=== PATIENT | female | born 1960 | race African-American/Black ===

== ENCOUNTER 2017-10-07 19:35 | Emergency (ER) | payer MEDICARE, OTHER ==
[~2017-10-07] VITALS: Ht 165.1 cm; Wt 90.9 kg
[~2017-10-07 19:35] MED LIST: METF1000 PO; htn med
[2017-10-07] MEDS ORDERED: METF500T6 PO (19:49)
[2017-10-07] MEDS ORDERED: LISI-622 PO (19:49)
[2017-10-07] MEDS ORDERED: HYDR-309 PO (19:49)
[2017-10-07 19:53] LABS: GLUCOSE,POINT OF CARE 486 MG/DL (70-110)
[2017-10-07 20:02] VITALS: BP 144/80
== END 2017-10-07 20:27 | disposition home or self-care (01) ==
LOC: EMS 19:36
DX: F32.9 Major depressive disorder, single episode, unspecified (principal); Z53.21 Procedure and treatment not carried out due to patient leaving prior to being seen by health care provider

== ENCOUNTER 2017-10-17 19:12 | Emergency (ER) | payer MEDICARE, OTHER ==
[~2017-10-17] VITALS: Ht 167.6 cm; Wt 54.5 kg
[~2017-10-17 19:12] MED LIST changes: +HYDR-309 PO; +LISI-622 PO; -METF1000 PO; +METF500T6 PO; -htn med
[2017-10-17] MEDS ORDERED: MetFORMIN HCL 500 MG TABLET PO ONE (19:30)
[2017-10-17] MEDS ORDERED: SODIUM CHLORIDE 0.9% 1,000 ML IV ONE ×2 (19:30→20:15)
[2017-10-17] MEDS ORDERED: HALO5TAB2 PO (19:33)
[2017-10-17 19:45] LABS: BASOPHILS % (AUTO) 0.9 % (0.0-2.0); EOSINOPHILS % (AUTO) 2.8 % (1.0-6.0); HEMATOCRIT 30.9 % (36-46); HEMOGLOBIN 10.6 g/dL (12.0-16.0); LYMPHOCYTES # (AUTO) 1.4 K/uL (1.0-4.8); LYMPHOCYTES % (AUTO) 19.9 % (22.0-44.0); MEAN CORPUSCULAR HEMOGLOBIN 31.6 pg (26.0-34.0); MEAN CORPUSCULAR HGB CONC 34.2 G/dL (31.0-37.0); MEAN CORPUSCULAR VOLUME 92 fL (80-100); MONOCYTES # (AUTO) 0.4 K/uL (0.1-1.0); MONOCYTES % (AUTO) 6.2 % (2.0-9.0); NEUTROPHILS % (AUTO) 70.2 % (40.0-70.0); PLATELET COUNT (AUTO) 291 K/uL (150-450); RED BLOOD CELL COUNT(AUTO) 3.35 MIL/uL (4.00-5.20); RED CELL DISTRIBUTION WIDTH 14.4 % (11.5-14.5)
[2017-10-17 20:08] LABS: GLUCOSE,POINT OF CARE 391 MG/DL (70-110)
[2017-10-17 20:15] LABS: ANION GAP 5 mmol/L (8-16); CALCIUM, TOTAL 8.2 mg/dL (8.8-10.5); CARBON DIOXIDE 29 mmol/L (22-29); CHLORIDE 104 mmol/L (98-107); CREATININE 1.05 mg/dL (0.60-1.30); GLOMERULAR FILTR. RATE CALC > 60 mL/min (>60); GLUCOSE,RANDOM 395 mg/dL (70-110); POTASSIUM 4.3 mmol/L (3.5-5.1); SODIUM SERUM 138 mmol/L (136-145); UREA NITROGEN, BLOOD 17 mg/dL (7-18)
[2017-10-17] MEDS ORDERED: INSULIN REGULAR, HUMAN 100 UNITS/ML IVP ONE (20:15)
[2017-10-17 20:22] LABS: ALANINE AMINOTRANSFERASE 26 U/L (12-78); ALBUMIN 3.1 g/dL (3.4-5.0); ALKALINE PHOSPHATASE 64 U/L (46-116); ASPARTATE AMINOTRANSFERASE 25 U/L (15-37); BILIRUBIN,TOTAL 0.2 mg/dL (0.1-1.0); TOTAL PROTEIN, SERUM 6.2 g/dL (6.4-8.2)
[2017-10-17 21:08] LABS: GLUCOSE,POINT OF CARE 137 MG/DL (70-110)
[2017-10-17 21:09] VITALS: BP 125/71
== END 2017-10-17 21:24 | disposition home or self-care (01) ==
LOC: EMS 19:15
DX: E11.65 Type 2 diabetes mellitus with hyperglycemia (principal); F20.9 Schizophrenia, unspecified; F31.9 Bipolar disorder, unspecified; I10 Essential (primary) hypertension; F17.210 Nicotine dependence, cigarettes, uncomplicated; Z59.0 Homelessness; Z79.899 Other long term (current) drug therapy
CPT/HCPCS: 36415; 80053; 82962; 85025; 96361; 96374; 99284; 99406; J1815; J7030

== ENCOUNTER 2017-12-08 15:33 | Inpatient (IN) | payer BC, MEDICAID ==
[~2017-12-08] VITALS: Ht 165.1 cm; Wt 66.0 kg
[~2017-12-08 15:33] MED LIST changes: +HALO5TAB2 PO; +METF-960 PO; -METF500T6 PO
[2017-12-08] MEDS ORDERED: DiphenhydrAMINE HCL 50 MG/ML VIAL IM ONE (16:00)
[2017-12-08] MEDS ORDERED: HALOPERIDOL LACTATE 5 MG/ML VIAL IM ONE (16:00)
[2017-12-08] MEDS ORDERED: LORazepam 2 MG/ML VIAL IM ONE (16:00)
[2017-12-08] MEDS ORDERED: ZOLPIDEM TARTRATE 10 MG TABLET PO PRN (16:15)
[2017-12-08] MEDS ORDERED: OLANZapine 5 MG RAPDIS TABLET PO PRN (16:15)
[2017-12-08] MEDS ORDERED: ACETAMINOPHEN 325 MG TABLET PO PRN ×2 (16:15→19:45)
[2017-12-08] MEDS ORDERED: IBUPROFEN 400 MG TABLET PO PRN (16:15)
[2017-12-08] MEDS ORDERED: LORazepam 2 MG TABLET PO PRN (16:15)
[2017-12-08 16:20] LABS: BASOPHILS % (AUTO) 1.2 % (0.0-2.0); EOSINOPHILS % (AUTO) 2.6 % (1.0-6.0); HEMATOCRIT 34.4 % (36-46); HEMOGLOBIN 11.4 g/dL (12.0-16.0); LYMPHOCYTES # (AUTO) 2.8 K/uL (1.0-4.8); LYMPHOCYTES % (AUTO) 27.4 % (22.0-44.0); MEAN CORPUSCULAR HEMOGLOBIN 30.6 pg (26.0-34.0); MEAN CORPUSCULAR HGB CONC 33.2 G/dL (31.0-37.0); MEAN CORPUSCULAR VOLUME 92 fL (80-100); MONOCYTES # (AUTO) 0.5 K/uL (0.1-1.0); MONOCYTES % (AUTO) 4.7 % (2.0-9.0); NEUTROPHILS # (AUTO) 6.6 K/uL (1.8-7.7); NEUTROPHILS % (AUTO) 64.1 % (40.0-70.0); PLATELET COUNT (AUTO) 471 K/uL (150-450); RED BLOOD CELL COUNT(AUTO) 3.73 MIL/uL (4.00-5.20); RED CELL DISTRIBUTION WIDTH 15.9 % (11.5-14.5)
[2017-12-08 16:36] LABS: ANION GAP 9 mmol/L (8-16); CALCIUM, TOTAL 9.2 mg/dL (8.8-10.5); CARBON DIOXIDE 28 mmol/L (22-29); CHLORIDE 101 mmol/L (98-107); CREATININE 1.04 mg/dL (0.60-1.30); GLOMERULAR FILTR. RATE CALC > 60 mL/min (>60); GLUCOSE,RANDOM 222 mg/dL (70-110); POTASSIUM 4.5 mmol/L (3.5-5.1); SODIUM SERUM 138 mmol/L (136-145); UREA NITROGEN, BLOOD 16 mg/dL (7-18)
[2017-12-08 16:37] LABS: AMPHET/METH SCREEN,URINE POSITIVE (NEGATIVE); BARBITURATE SCREEN, URINE NEGATIVE (NEGATIVE); BENZODIAZEPINES SCREEN,URINE NEGATIVE (NEGATIVE); CANNABINOID SCREEN,URINE NEGATIVE (NEGATIVE); COCAINE SCREEN,URINE POSITIVE (NEGATIVE); METHADONE SCREEN, URINE NEGATIVE (NEGATIVE); OPIATE SCREEN,URINE NEGATIVE (NEGATIVE); PHENCYCLIDINE SCREEN,URINE NEGATIVE (NEGATIVE)
[2017-12-08 16:41] LABS: ALANINE AMINOTRANSFERASE 24 U/L (12-78); ALBUMIN 4.1 g/dL (3.4-5.0); ALKALINE PHOSPHATASE 90 U/L (46-116); ASPARTATE AMINOTRANSFERASE 21 U/L (15-37); BILIRUBIN,TOTAL 0.3 mg/dL (0.1-1.0); TOTAL PROTEIN, SERUM 8.2 g/dL (6.4-8.2)
[2017-12-08 17:00] LABS: GLUCOSE,POINT OF CARE 216 MG/DL (70-110)
[2017-12-08 19:42] VITALS: BP 140/80
[2017-12-08] MEDS ORDERED: CloNIDine HCL 0.1 MG TABLET PO PRN (19:45)
[2017-12-08] MEDS ORDERED: DOCUSATE SODIUM 100 MG CAPSULE PO PRN (19:45)
[2017-12-08] MEDS ORDERED: ONDANSETRON HCL 4 MG TABLET PO PRN (19:45)
[2017-12-08] MEDS ORDERED: ALBUTEROL SULFATE HFA 90 MCG/PUFF 8 GM INHALER IH PRN (19:45)
[2017-12-08] MEDS ORDERED: NICOTINE 14 MG/24 HOUR PATCH TD PRN (19:45)
[2017-12-08] MEDS ORDERED: PETROLATUM,WHITE 71 GM JELLY TP PRN (19:45)
[2017-12-08] MEDS ORDERED: PNEUMOCOCCAL VACCINE POLYVALENT 0.5 ML VIAL [PPSV23] IM ONE (19:45)
[2017-12-08] MEDS ORDERED: LOPERAMIDE HCL 2 MG CAPSULE PO PRN (19:45)
[2017-12-08] MEDS ORDERED: MAGNESIUM HYDROXIDE SUSPENSION 30 ML UDCUP PO PRN (19:45)
[2017-12-08] MEDS ORDERED: MAG HYDROX/AL HYDROX/SIMETH ES 30 ML SUSPENSION UDCUP PO PRN (19:45)
[2017-12-08] MEDS ORDERED: GuaiFENesin/D-METHORPHAN [SUGAR-FREE] 200-20MG/10 ML SYRUP UDCUP PO PRN (19:45)
[2017-12-08 20:42] LABS: GLUCOSE,POINT OF CARE 167 MG/DL (70-110)
[2017-12-09 00:19] LABS: GLUCOMETER DEV NAME(LOC) BV3S 2; GLUCOSE,POINT OF CARE 170 MG/DL (70-110)
[2017-12-09 06:49] VITALS: BP 121/81
[2017-12-09] MEDS ORDERED: MetFORMIN HCL 500 MG TABLET PO SCH (07:00)
[2017-12-09] MEDS: IBUPROFEN 400 MG TABLET PO PRN (07:09)
[2017-12-09 07:50] LABS: BASOPHILS % (AUTO) 0.9 % (0.0-2.0); HEMATOCRIT 34.4 % (36-46); HEMOGLOBIN 11.6 g/dL (12.0-16.0); LYMPHOCYTES # (AUTO) 1.9 K/uL (1.0-4.8); LYMPHOCYTES % (AUTO) 25.3 % (22.0-44.0); MEAN CORPUSCULAR HEMOGLOBIN 30.8 pg (26.0-34.0); MEAN CORPUSCULAR HGB CONC 33.7 G/dL (31.0-37.0); MEAN CORPUSCULAR VOLUME 92 fL (80-100); MONOCYTES # (AUTO) 0.4 K/uL (0.1-1.0); MONOCYTES % (AUTO) 5.9 % (2.0-9.0); NEUTROPHILS # (AUTO) 4.8 K/uL (1.8-7.7); NEUTROPHILS % (AUTO) 64.9 % (40.0-70.0); PLATELET COUNT (AUTO) 439 K/uL (150-450); RED BLOOD CELL COUNT(AUTO) 3.76 MIL/uL (4.00-5.20); RED CELL DISTRIBUTION WIDTH 15.8 % (11.5-14.5)
[2017-12-09 07:57] LABS: HEMOGLOBIN A1C 12.5 % (4.5-6.2)
[2017-12-09 08:10] VITALS: BP_SYST 106; BP_SYST 139; BP_DIAS 53; BP_DIAS 72
[2017-12-09 08:49] LABS: ALANINE AMINOTRANSFERASE 26 U/L (12-78); ALBUMIN 3.5 g/dL (3.4-5.0); ALKALINE PHOSPHATASE 78 U/L (46-116); ANION GAP 7 mmol/L (8-16); ASPARTATE AMINOTRANSFERASE 35 U/L (15-37); BILIRUBIN,TOTAL 0.4 mg/dL (0.1-1.0); CALCIUM, TOTAL 9.4 mg/dL (8.8-10.5); CARBON DIOXIDE 29 mmol/L (22-29); CHLORIDE 103 mmol/L (98-107); CHOL/HDL RATIO 2.5 (3.9-5.7); CHOLESTEROL 195 mg/dL (131-200); CREATININE 0.82 mg/dL (0.60-1.30); GLOMERULAR FILTR. RATE CALC > 60 mL/min (>60); GLUCOSE,RANDOM 143 mg/dL (70-110); HDL CHOLESTEROL 78 mg/dL (40-60); LDL CHOL (CALC.) 106 mg/dL (0-130); SODIUM SERUM 139 mmol/L (136-145); THYROID STIMULATING HORMONE 1.62 uIU/mL (0.36-3.74); TOTAL PROTEIN, SERUM 7.2 g/dL (6.4-8.2); TRIGLYCERIDES 56 mg/dL (15-150); UREA NITROGEN, BLOOD 13 mg/dL (7-18)
[2017-12-09] MEDS: LISINOPRIL 5 MG TABLET PO SCH (08:51)
[2017-12-09] MEDS: HALOPERIDOL 5 MG TABLET PO SCH ×2 (10:30→20:38)
[2017-12-09 13:55] LABS: GLUCOMETER DEV NAME(LOC) BV3S 2; GLUCOSE,POINT OF CARE 134 MG/DL (70-110)
[2017-12-09 16:03] VITALS: BP 118/63
[2017-12-09] MEDS ORDERED: GLUCAGON,HUMAN RECOMBINANT 1 MG VIAL IM PRN (16:45)
[2017-12-09] MEDS ORDERED: INSULIN LISPRO 100 UNITS/ML SQ ONE (17:15)
[2017-12-09] MEDS: INSULIN LISPRO 100 UNITS/ML SQ PRN (21:18)
[2017-12-10 05:55] VITALS: BP 138/74
[2017-12-10] MEDS: IBUPROFEN 400 MG TABLET PO PRN (06:11)
[2017-12-10] MEDS: MetFORMIN HCL 500 MG TABLET PO SCH ×2 (06:36→16:57)
[2017-12-10] MEDS: INSULIN LISPRO 100 UNITS/ML SQ PRN ×3 (06:37→20:16)
[2017-12-10 07:21] LABS: GLUCOMETER DEV NAME(LOC) BV3S 2; GLUCOSE,POINT OF CARE 537 MG/DL (70-110)
[2017-12-10 08:04] VITALS: BP 136/99
[2017-12-10] MEDS: LISINOPRIL 5 MG TABLET PO SCH (08:14)
[2017-12-10] MEDS: HALOPERIDOL 5 MG TABLET PO SCH ×2 (08:14→20:37)
[2017-12-10 13:50] LABS: GLUCOMETER DEV NAME(LOC) BV3S 2; GLUCOSE,POINT OF CARE 180 MG/DL (70-110)
[2017-12-10 16:04] VITALS: BP 140/71
[2017-12-10] MEDS: FERROUS SULFATE 325 MG EC TABLET PO SCH (16:57)
[2017-12-11 01:31] LABS: GLUCOMETER DEV NAME(LOC) BV3S 2; GLUCOSE,POINT OF CARE 210 MG/DL (70-110)
[2017-12-11] MEDS: MetFORMIN HCL 500 MG TABLET PO SCH ×2 (06:43→16:25)
[2017-12-11] MEDS: FERROUS SULFATE 325 MG EC TABLET PO SCH ×2 (06:44→16:25)
[2017-12-11 06:45] VITALS: BP 138/75
[2017-12-11] MEDS: INSULIN LISPRO 100 UNITS/ML SQ PRN ×4 (06:46→20:18)
[2017-12-11 08:04] VITALS: BP 139/67
[2017-12-11] MEDS: HALOPERIDOL 5 MG TABLET PO SCH ×2 (08:25→20:00)
[2017-12-11] MEDS: LISINOPRIL 5 MG TABLET PO SCH (08:25)
[2017-12-11 15:57] LABS: GLUCOMETER DEV NAME(LOC) BV3S 2; GLUCOSE,POINT OF CARE 386 MG/DL (70-110)
[2017-12-11 16:02] VITALS: BP 134/63
[2017-12-11 16:19] LABS: GLUCOMETER DEV NAME(LOC) BV3S 2; GLUCOSE,POINT OF CARE 175 MG/DL (70-110)
[2017-12-11 16:43] LABS: GLUCOMETER DEV NAME(LOC) BV3S 2; GLUCOSE,POINT OF CARE 155 MG/DL (70-110)
[2017-12-11 16:43] LABS: GLUCOMETER DEV NAME(LOC) BV3S 2; GLUCOSE,POINT OF CARE 315 MG/DL (70-110)
[2017-12-11 17:02] LABS: GLUCOMETER DEV NAME(LOC) BV3S 2; GLUCOSE,POINT OF CARE 351 MG/DL (70-110)
[2017-12-11 20:35] LABS: GLUCOMETER DEV NAME(LOC) BV3S 2; GLUCOSE,POINT OF CARE 189 MG/DL (70-110)
[2017-12-12] MEDS: MetFORMIN HCL 500 MG TABLET PO SCH (06:03)
[2017-12-12] MEDS: FERROUS SULFATE 325 MG EC TABLET PO SCH (06:03)
[2017-12-12] MEDS: INSULIN LISPRO 100 UNITS/ML SQ PRN ×2 (06:15→11:46)
[2017-12-12 06:24] LABS: GLUCOMETER DEV NAME(LOC) BV3S 2; GLUCOSE,POINT OF CARE 219 MG/DL (70-110)
[2017-12-12 06:46] VITALS: BP 152/79
[2017-12-12] MEDS: HALOPERIDOL 5 MG TABLET PO SCH (08:16)
[2017-12-12] MEDS: LISINOPRIL 5 MG TABLET PO SCH (08:16)
[2017-12-12 08:33] VITALS: BP 148/65
[2017-12-12] MEDS ORDERED: FERR-89 PO (10:23)
[2017-12-12] MEDS ORDERED: METF-960 PO (10:23)
[2017-12-12] MEDS ORDERED: LISI-660 PO (10:23)
[2017-12-12 11:40] LABS: GLUCOMETER DEV NAME(LOC) BV3S 2; GLUCOSE,POINT OF CARE 277 MG/DL (70-110)
== END 2017-12-12 13:30 | disposition home or self-care (01) | DRG 885 ==
LOC: EMS 15:34 → B3A 17:23
PROVIDERS: ADMIT Psychiatry & Neurology Psychiatry; ATTEND Psychiatry & Neurology Psychiatry
PROC: 3E0234Z Introduction of Serum, Toxoid and Vaccine into Muscle, Percutaneous Approach (ICD-10-PCS; principal; 2017-12-09)
PROC: 3E02340 Introduction of Influenza Vaccine into Muscle, Percutaneous Approach (ICD-10-PCS; 2017-12-09)
DX: F25.1 Schizoaffective disorder, depressive type (principal); F14.90 Cocaine use, unspecified, uncomplicated; F17.210 Nicotine dependence, cigarettes, uncomplicated; M54.30 Sciatica, unspecified side; I10 Essential (primary) hypertension; E11.9 Type 2 diabetes mellitus without complications; F41.9 Anxiety disorder, unspecified; F10.10 Alcohol abuse, uncomplicated; F15.90 Other stimulant use, unspecified, uncomplicated; F19.10 Other psychoactive substance abuse, uncomplicated; Z71.6 Tobacco abuse counseling; Z71.51 Drug abuse counseling and surveillance of drug abuser; Z71.41 Alcohol abuse counseling and surveillance of alcoholic; Z79.84 Long term (current) use of oral hypoglycemic drugs; Z79.899 Other long term (current) drug therapy; Z23 Encounter for immunization; Z98.891 History of uterine scar from previous surgery
CPT/HCPCS: 83036; 84443; 90686; 90732; 96372; 99285; G0480; J1200; J1630; J1815; J2060

== ENCOUNTER 2018-09-07 08:07 | Emergency (ER) | payer BC, OTHER ==
[~2018-09-07] VITALS: Ht 165.1 cm; Wt 90.9 kg
[~2018-09-07 08:07] MED LIST changes: +FERR-89 PO; -HYDR-309 PO; -LISI-622 PO; +LISI-660 PO
[2018-09-07 08:39] LABS: GLUCOSE,POINT OF CARE 227 MG/DL (70-110)
[2018-09-07] MEDS ORDERED: SODIUM CHLORIDE 0.9% 1,000 ML IV ONE ×2 (08:45→11:00)
[2018-09-07 09:03] LABS: BASOPHILS % (AUTO) 0.9 % (0.0-2.0); EOSINOPHILS % (AUTO) 1.8 % (1.0-6.0); HEMATOCRIT 33.6 % (36-46); HEMOGLOBIN 11.2 g/dL (12.0-16.0); LYMPHOCYTES # (AUTO) 1.3 K/uL (1.0-4.8); LYMPHOCYTES % (AUTO) 12.7 % (22.0-44.0); MEAN CORPUSCULAR HEMOGLOBIN 31.8 pg (26.0-34.0); MEAN CORPUSCULAR HGB CONC 33.5 G/dL (31.0-37.0); MEAN CORPUSCULAR VOLUME 95 fL (80-100); MONOCYTES # (AUTO) 0.5 K/uL (0.1-1.0); MONOCYTES % (AUTO) 5.3 % (2.0-9.0); NEUTROPHILS % (AUTO) 79.3 % (40.0-70.0); PLATELET COUNT (AUTO) 381 K/uL (150-450); RED BLOOD CELL COUNT(AUTO) 3.54 MIL/uL (4.00-5.20); RED CELL DISTRIBUTION WIDTH 16.5 % (11.5-14.5)
[2018-09-07 09:20] LABS: CALCIUM, TOTAL 9.5 mg/dL (8.8-10.5); CREATININE 1.2 mg/dL (0.60-1.30); POTASSIUM 3.6 mmol/L (3.5-5.1)
[2018-09-07 12:36] VITALS: BP 125/63
== END 2018-09-07 12:42 | disposition home or self-care (01) ==
LOC: EMS 08:09
DX: E86.9 Volume depletion, unspecified (principal); R55 Syncope and collapse; F17.210 Nicotine dependence, cigarettes, uncomplicated; F14.90 Cocaine use, unspecified, uncomplicated; F31.9 Bipolar disorder, unspecified; E11.9 Type 2 diabetes mellitus without complications; I10 Essential (primary) hypertension; F20.9 Schizophrenia, unspecified; Z59.0 Homelessness; Z79.84 Long term (current) use of oral hypoglycemic drugs; Z79.899 Other long term (current) drug therapy
CPT/HCPCS: 36415; 80048; 82962; 85025; 93005; 96360; 96361; 99285; G0480; J7030; 82948